=== PATIENT | female | born 1995 ===

== ENCOUNTER 2021-06-07 16:55 | Emergency (ER) | payer BC ==
[2021-06-07 17:04] VITALS: BP 117/70
--- NOTE | 2021-06-07 18:05 | Emergency Department Report ---
Chief Complaint: Medical Clearance Stated Complaint: POSS COVID+,WANTS TO BEEN SEEN FOR SYMPTOMS Time Seen by Provider: 06/07/21 18:00 - HPI History of Present Illness: The patient was evaluated in the emergency department for symptoms described in the history of present illness. He/she was evaluated in the context of the global COVID-19 pandemic, which necessitated consideration that the patient might be at risk for infection with the virus that causes COVID-19. I nstitutional protocols and algorithms that pertain to the evaluation of patients at risk for COVID-19 are in a state of rapid change based on information released by regulatory bodies including the CDC and federal and state organizations. These policies and algorithms were followed during the patient's care in the emergency department. Please note that these policies, procedures and recommendations changed on a rapid basis. 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 She states that she wanted to get checked out. Patient reports she has had cough noticed a low-grade fever of 99. Nasal congestion sore throat and headache. Is not vaccinated. Has not had a recent Covid test in the last 2 weeks - Exam Vital Signs: Vital Signs 06/07/21 17:03 Temperature 99 F Pulse Rate 105 H Respiratory 15 Rate Blood Pressure 117/70 [Right] O2 Sat by Pulse 100 Oximetry Physical Exam: General: Awake, appropriately interactive, no acute distress. Neck: Supple. Full range of motion intact. Cardiovascular: Normal peripheral perfusion. Pulmonary: No respiratory distress. Patient is speaking normally without use of accessory muscles. Skin: No apparent rashes or lesions. Neurological: No facial asymmetry. Speech is clear. Follows commands. Patient is alert and oriented. Musculoskeletal: Full range of motion, no crepitus. Able to bear weight and ambulate without difficulty. Distal neurovascular and motor/sensory function is intact. Psych: Cooperative. Appropriate mood and affect. MSE screening note: Focused history and physical exam performed. 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 She states that she wanted to get checked out. Patient reports she has had cough noticed a low-grade fever of 99. Nasal congestion sore throat and headache. Is not vaccinated. Has not had a recent Covid test in the last 2 weeks. Discussed with patient she can follow-up outpatient need to have a Covid test. I discussed with patient she can increase her fluid intake Tylenol ibuprofen. Quarantine. Take [id number] cold flu medication as this will help treat the symptoms. Return back to the emergency room if you having any worsening symptoms such as difficulty breathing high fever nausea vomiting diarrhea. Encouraged to get vaccinated. ED Disposition for MSE Disposition: HOME / SELF CARE / HOMELESS Is pt being admited?: No Does the pt Need Aspirin: No Condition: Stable Instructions: COVID-19 Frequently Asked Questions, Prevent the Spread of COVID- 19 if You Are Sick - CDC, COVID-19: How to Protect Yourself and Others - CDC Additional Instructions: Your symptoms appear most consistent with a nonspecific viral syndrome. However, given this current pandemic, COVID-19 is in the differential of possibilities. Despite your previous negative COVID-19 test, I do recommend r epeat outpatient Covid 19 testing. In the meantime, isolate/quarantine yourself and stay away from anyone who is elderly, immunocompromised or chronically ill. You can use ibuprofen every 6-8 hours and Tylenol every 4-8 hours, using the dosing on the back of the bottle, as needed for any fever or body aches. Return to the emergency department with any worsening of your symptoms, development of chest pain or shortness of breath, or with any acute distress. Referrals: [facility] [Provider Group] - 3-5 Days Forms: Work/School Release Form(ED)
== END 2021-06-07 18:30 | disposition home or self-care (01) ==
LOC: ED 16:55
DX: R05.9 Cough, unspecified (principal); R09.89 Other specified symptoms and signs involving the circulatory and respiratory systems; Z20.822 Contact with and (suspected) exposure to COVID-19
CPT/HCPCS: 99281

== ENCOUNTER 2021-07-02 20:48 | Emergency (ER) | payer BC ==
[2021-07-02 20:53] VITALS: BP 114/65
--- NOTE | 2021-07-02 22:29 | XRay Report ---
RIGHT HAND 3 VIEW(S) INDICATION / CLINICAL INFORMATION: thumb injury COMPARISON: None available. FINDINGS: BONES / JOINT(S): There is a mildly displaced avulsion fracture along the ulnar aspect of the base of the proximal phalanx of the first digit. No significant arthritis. SOFT TISSUES: No significant abnormality. ADDITIONAL FINDINGS: None. Signer Name: Regulo Tamayo DO Signed: 07/02/2021 10:25 PM Workstation Name: [id number]
--- NOTE | 2021-07-02 23:54 | Emergency Department Report ---
ED Upper Extremity Inj HPI - General Chief Complaint: Extremity Injury, Upper Stated Complaint: EXTREMITY PROBLEM Time Seen by Provider: 07/02/21 21:44 Source: patient Mode of arrival: Ambulatory Limitations: Language Barrier - History of Present Illness Initial Comments: cc: thumb pain HPI: this is a 25 yo female with hx of DM who pulled her right thumb. severe pain at the base of the thumb. -: Gradual, Sudden Place: other (base of thumb) Context: other (patient attemtped to pop her thumb) Associated Symptoms: denies other symptoms - Related Data Previous Rx's Medication Instructions Recorded Last Taken Type Ibuprofen [Motrin 400 MG tab] 400 mg PO TID 5 Days #15 tablet 07/02/21 Unknown Rx Allergies Allergy/AdvReac Type Severity Reaction Status Date / Time acetaminophen Allergy Intermediate Rash Verified 07/02/21 20:53 [From Pamprin Max] aspirin [From Pamprin Max] Allergy Intermediate Rash Verified 07/02/21 20:53 caffeine [From Pamprin Max] Allergy Intermediate Rash Verified 07/02/21 20:53 ED Review of Systems ROS: Stated complaint: EXTREMITY PROBLEM Other details as noted in HPI Constitutional: denies: chills, fever Respiratory: denies: cough, shortness of breath Cardiovascular: denies: chest pain Gastrointestinal: denies: abdominal pain, nausea, vomiting Neurological: denies: numbness, paresthesias ED Past Medical Hx - Past Medical History Previous Medical History?: Yes Hx Diabetes: Yes - Surgical History Past Surgical History?: Yes Additional Surgical History: right wrist, perforated ulcer - Family History Family history: no significant - Social History Smoking Status: Never Smoker Substance Use Type: None - Medications Home Medications: Home Medications Medication Instructions Recorded Confirmed Last Taken Type Ibuprofen [Motrin 400 MG tab] 400 mg PO TID 5 Days #15 tablet 07/02/21 Unknown Rx ED Physical Exam - General Limitations: Language Barrier General appearance: alert, in no apparent distress - Head Head exam: Present: atraumatic, normocephalic - Eye Eye exam: Present: normal appearance - ENT ENT exam: Present: normal orophraynx - Neck Neck exam: Present: normal inspection - Respiratory Respiratory exam: Absent: respiratory distress - Expanded Upper Extremity Exam Right General: Present: other, normal inspection Shoulder Exam: Present: normal inspection, full ROM Upper Arm exam: Present: normal inspection, full ROM Elbow exam: Present: normal inspection, full ROM Forearm Wrist exam: Present: normal inspection, full ROM Hand Wrist exam: Present: tenderness, other (right thumb tenderness at IP no erythema). Absent: swelling, abrasion, laceration, ecchymosis - Neurological Exam Neurological exam: Present: alert, oriented X3 - Psychiatric Psychiatric exam: Present: normal affect, normal mood ED Course Vital Signs 07/02/21 20:50 Temperature 97.8 F Pulse Rate 87 Respiratory 18 Rate Blood Pressure 114/65 [Right] O2 Sat by Pulse 100 Oximetry ED Medical Decision Making - Medical Decision Making Avulsion fracture base of right thumb thumb spica splint placed under my supervision. Intact after placement. Referred to orthopedic surgeon as needed. Critical care attestation.: If time is entered above; I have spent that time in minutes in the direct care of this critically ill patient, excluding procedure time. ED Disposition Clinical Impression: Avulsion fracture of thumb Disposition: HOME / SELF CARE / HOMELESS Is pt being admited?: No Does the pt Need Aspirin: No Condition: Stable Instructions: Thumb Fracture Prescriptions: Ibuprofen [Motrin 400 MG tab] 400 mg PO TID 5 Days #15 tablet Referrals: EFRAIN BRICENO MD [Staff Physician] - 3-5 Days
== END 2021-07-03 00:23 | disposition home or self-care (01) ==
LOC: ED 20:48
DX: S62.511A Displaced fracture of proximal phalanx of right thumb, initial encounter for closed fracture (principal); I10 Essential (primary) hypertension; X58.XXXA Exposure to other specified factors, initial encounter; Y93.89 Activity, other specified; Y92.89 Other specified places as the place of occurrence of the external cause; Y99.8 Other external cause status

== ENCOUNTER 2022-02-21 05:26 | Emergency (ER) | payer BC ==
[2022-02-21 05:38] VITALS: BP 137/72
== END 2022-02-21 08:40 | disposition left against medical advice (07) ==
LOC: ED 05:26
DX: K08.89 Other specified disorders of teeth and supporting structures (principal); Z53.21 Procedure and treatment not carried out due to patient leaving prior to being seen by health care provider